=== PATIENT | male | born 1995 | race Caucasian/White ===

== ENCOUNTER 2021-09-20 08:15 | Emergency (ER) | payer OTHER ==
[2021-09-20 08:22] VITALS: BP 132/90
--- NOTE | 2021-09-20 08:49 | ED Physician Documentation ---
PD HPI CHEST PAIN - Stated complaint Stated Complaint: CHEST PX - Chief complaint Chief Complaint: Cardiac - History obtained from History obtained from: Patient - Additional information Additional information: Patient comes emergency department chief complaint of substernal chest pain that he noticed this morning when he woke up. He states he was feeling fine yesterday but this morning, noticed a pain over his sternum which is made worse by ice stretching his arms and shoulders back or standing up straight. Patient denies any recent workouts or other excessive use of his chest. He denies any heavy lifting or twisting. Patient states he does [place] and thinks this may have something to do with his symptoms. No other complaints at this time. He is not a diabetic, and does not have hypertension. He has never been a smoker. No family history of young MIs, and no history of heart issues for the patient. No personal history of DVT. He states his mother had a DVT after having surgery and being in the hospital, but no male relatives with DVT. Patient denies any shortness of breath, nausea, or sweating. No lightheadedness. He was at work when his commander became aware of the chest pain and told him to come get checked out. Review of Systems Ten Systems: 10 systems reviewed and negative Constitutional: reports: Reviewed and negative Eyes: reports: Reviewed and negative Ears: reports: Reviewed and negative Nose: reports: Reviewed and negative Throat: reports: Reviewed and negative Cardiac: reports: Chest pain / pressure Respiratory: reports: Reviewed and negative GI: reports: Reviewed and negative : reports: Reviewed and negative Skin: reports: Reviewed and negative Musculoskeletal: reports: Reviewed and negative Neurologic: reports: Reviewed and negative Psychiatric: reports: Reviewed and negative Endocrine: reports: Reviewed and negative Immunocompromised: reports: Reviewed and negative PD PAST MEDICAL HISTORY - Past Medical History Past Medical History: No Cardiovascular: None Respiratory: Sleep apnea, CPAP use Neuro: None Endocrine/Autoimmune: None GI: None : None HEENT: None Psych: None Musculoskeletal: None Derm: None - Past Surgical History Past Surgical History: No - Present Medications Home Medications: Ambulatory Orders Medication Instructions Recorded Confirmed No Known Home Medications 09/20/21 09/20/21 - Allergies Allergies/Adverse Reactions: Allergies Allergy/AdvReac Type Severity Reaction Status Date / Time No Known Drug Allergies Allergy Verified 09/20/21 08:18 - Social History Does the pt smoke?: No Smoking Status: Never smoker Does the pt drink ETOH?: No Does the pt have substance abuse?: No - Immunizations Immunizations are current?: Yes PD ED PE NORMAL - Vitals Vital signs reviewed: Yes - General General: Alert and oriented X 3, No acute distress, Well developed/nourished - HEENT HEENT: Atraumatic, PERRL, EOMI, Moist mucous membranes - Neck Neck: Supple, no meningeal sign - Cardiac Cardiac: RRR, No murmur, Strong equal pulses - Respiratory Respiratory: No respiratory distress, Clear bilaterally - Abdomen Abdomen: Soft, Non tender, Non distended - Derm Derm: Normal color, Warm and dry, No rash - Extremities Extremities: No deformity, No edema, No calf tenderness / cord - Neuro Neuro: Alert and oriented X 3 - Psych Psych: Normal mood, Normal affect PD ED PE EXPANDED - Free text exam Free text exam: Reproducible tenderness to palpation of sternum. Results - Vitals Vitals: Vital Signs - 24 hr 09/20/21 08:19 Temperature 36.1 C L Heart Rate 74 Respiratory 18 Rate Blood Pressure 132/90 H O2 Saturation 99 Oxygen O2 Source Room air - EKG (time done) 0834 Rate: Rate (enter#) (76) Rhythm: NSR [place]: Normal Intervals: Normal [place] QRS: Normal Ischemia: Normal ST segments Compare to prior EKG: Old EKG unavailable Computer interpretation: Agree with computer - Rads (name of study) CXR Radiology: Final report received, EMP read indepedently, See rad report (neg) PD MEDICAL DECISION MAKING - ED course Complexity details: reviewed results, re-evaluated patient, considered differential, d/w patient ED course: I discussed with the patient that he is low risk for coronary artery disease and that his symptoms sound more musculoskeletal in nature. I have discussed symptomatic management at home with the patient. His EKG and chest x-ray look good here. We have discussed the usual indications for return. Departure - Departure Disposition: 01 Home, Self Care Clinical Impression: Chest wall pain Condition: Stable Instructions: ED Strain Chest Wall
--- NOTE | 2021-09-20 08:53 | XRAY Report ---
PROCEDURE: Chest 1 View X-Ray INDICATIONS: cp TECHNIQUE: One view of the chest was acquired. COMPARISON: None FINDINGS: Surgical changes and devices: None. Lungs and pleura: No pleural effusions or pneumothorax. Lungs are clear. Mediastinum: Mediastinal contours appear normal. Heart size is normal. Bones and chest wall: No suspicious bony lesions. Overlying soft tissues appear unremarkable. IMPRESSION: No acute pulmonary process. Reviewed by: Chely Davis MD on 09/20/2021 8:52 AM [facility] Approved by: Chely Davis MD on 09/20/2021 8:52 AM [facility] Station ID: [id number]
== END 2021-09-20 09:09 | disposition home or self-care (01) ==
LOC: ED 08:15
DX: R07.89 Other chest pain (principal)
CPT/HCPCS: 93005; 99282; 99283